=== PATIENT | female | born 1945 | race Caucasian/White ===

== ENCOUNTER 2017-10-02 14:25 | Inpatient (IN) | payer MEDICARE ==
[~2017-10-02] VITALS: Ht 162.6 cm; Wt 66.7 kg
[2017-10-02 16:22] VITALS: BP 146/83
[2017-10-02] MEDS ORDERED: ONDANSETRON 2MG/ML, 2ML IVPush PRN (16:30)
[2017-10-02] MEDS ORDERED: PLEASE ENTER ALLERGIES MC SCH (16:30)
[2017-10-02] MEDS ORDERED: hydrALAzine 20 MG/ML, 1ML IV PRN (17:00)
[2017-10-02] MEDS: SODIUM CHLORIDE 0.9% 1,000 ML IV SCH (18:08)
[2017-10-02 18:11] LABS: ALBUMIN 3.7 g/dL (3.4-5.0); ANION GAP 10 mmol/L (5-15); CALCIUM 9.2 mg/dL (8.5-10.1); CHLORIDE 93 mmol/L (98-107)
[2017-10-02 18:36] LABS: % IRON SATURATION 52 % (20-55); ALANINE AMINOTRANSFERASE 24 U/L (12-78); ALKALINE PHOSPHATASE 74 U/L (45-117); BILIRUBIN,TOTAL 0.6 mg/dL (0.2-1.0); CREATININE 0.62 mg/dL (0.55-1.02); IRON LEVEL 184 mcg/dL (50-170); TOTAL IRON BINDING CAPACITY 354 mcg/dL (250-450); TOTAL PROTEIN 7.6 g/dL (6.4-8.2)
[2017-10-02 18:37] LABS: FOLATE LEVEL > 20.0 ng/mL (3.1-17.5)
[2017-10-02 18:57] LABS: MD YES; MEAN CORPUSCULAR HEMOGLOBIN 32.8 pg (27.0-34.8); MEAN CORPUSCULAR HGB CONC 33.2 g/dL (32.4-35.8); RED BLOOD COUNT 2.33 x10^6/uL (3.82-5.3); RED CELL DISTRIBUTION WIDTH 23.3 % (9.6-15.2)
[2017-10-02 19:28] LABS: MEAN PLATELET VOLUME 8.7 fL (7.4-10.4); PLATELET COUNT 50 x10^3/uL (130-400)
[2017-10-02 19:37] LABS: BAND#(MANUAL) 0.12 x10^3/uL; BANDS%(MANUAL) 3 % (0-7); BASOS#(MANUAL) 0.04 x10^3/uL (0-0.1); BASOS% (MANUAL) 1 % (0-1); LYMPH#(MANUAL) 2.24 x10^3/uL (1-3.4); LYMPHS% (MANUAL) 56 % (22-44); METAMYELOCYTES# (MANUAL) 0.24 x10^3/uL (0-0); METAMYELOCYTES% (MANUAL) 6 % (0-1); MONOS#(MANUAL) 0.12 x10^3/uL (0.3-2.7); MONOS% (MANUAL) 3 % (2-9); MYELOCYTES# (MANUAL) 0.16 x10^3/uL (0-0); MYELOCYTES% (MANUAL) 4 % (0-0); REACTIVE LYMPHS # (MANUAL) 0.08 x10^3/uL (0-0); REACTIVE LYMPHS % (MANUAL) 2 % (0-0); SEG#(MANUAL) 0.48 x10^3/uL (1.8-6.8); SEGS% (MANUAL) 12 % (42-75)
[2017-10-02 19:39] LABS: NRBC % (MANUAL) 25 % (0-1); OTHER CELLS # (MANUAL) 0.52 x10^3/uL (0-0); OTHER CELLS % (MANUAL) 13 % (0-0)
[2017-10-02 19:43] LABS: OVALOCYTES 1+; SCHISTOCYTES 1+; TEAR DROPS 1+
[2017-10-02 19:44] LABS: POLYCHROMASIA 1+
[2017-10-02 19:45] LABS: ACANTHOCYTES 1+; ROULEAUX 1+
[2017-10-02 19:48] LABS: <PLATELET ESTIMATE> DECREASED; SPHEROCYTES 1+
[2017-10-02 19:51] LABS: HYPOGRAN PLTS 1+; PAPPENHEIMER BODIES 1+
[2017-10-02 19:52] VITALS: BP 119/77
[2017-10-03] VITALS (8 sets, daily range): BP systolic 121–138; BP diastolic 72–85
[2017-10-03] MEDS: SODIUM CHLORIDE 0.9% 1,000 ML IV SCH (03:31)
[2017-10-03 05:23] LABS: ALBUMIN 2.9 g/dL (3.4-5.0); ANION GAP 6 mmol/L (5-15); CALCIUM 7.9 mg/dL (8.5-10.1); CHLORIDE 101 mmol/L (98-107)
[2017-10-03 05:27] LABS: ALANINE AMINOTRANSFERASE 21 U/L (12-78); ALKALINE PHOSPHATASE 84 U/L (45-117); BILIRUBIN,TOTAL 0.4 mg/dL (0.2-1.0); CREATININE 0.56 mg/dL (0.55-1.02); TOTAL PROTEIN 6.1 g/dL (6.4-8.2)
[2017-10-03 05:50] LABS: MEAN CORPUSCULAR HEMOGLOBIN 33.3 pg (27.0-34.8); MEAN CORPUSCULAR HGB CONC 33.5 g/dL (32.4-35.8); MEAN CORPUSCULAR VOLUME 99.4 fL (80-100); RED BLOOD COUNT 1.92 x10^6/uL (3.82-5.3); RED CELL DISTRIBUTION WIDTH 22.8 % (9.6-15.2)
[2017-10-03 05:51] LABS: MEAN PLATELET VOLUME 9.2 fL (7.4-10.4); PLATELET COUNT 48 x10^3/uL (130-400)
[2017-10-03 06:09] LABS: MD YES
[2017-10-03 06:13] LABS: BAND#(MANUAL) 0.15 x10^3/uL; BANDS%(MANUAL) 3 % (0-7); EOS#(MANUAL) 0.05 x10^3/uL (0.0-0.4); EOS% (MANUAL) 1 % (1-7); LYMPH#(MANUAL) 3.38 x10^3/uL (1-3.4); LYMPHS% (MANUAL) 69 % (22-44); METAMYELOCYTES# (MANUAL) 0.15 x10^3/uL (0-0); METAMYELOCYTES% (MANUAL) 3 % (0-1); MONOS#(MANUAL) 0.05 x10^3/uL (0.3-2.7); MONOS% (MANUAL) 1 % (2-9); MYELOCYTES% (MANUAL) 4 % (0-0); SEG#(MANUAL) 0.54 x10^3/uL (1.8-6.8); SEGS% (MANUAL) 11 % (42-75)
[2017-10-03 06:14] LABS: NRBC % (MANUAL) 38 % (0-1); OTHER CELLS # (MANUAL) 0.39 x10^3/uL (0-0)
[2017-10-03 06:15] LABS: OTHER CELLS % (MANUAL) 8 % (0-0)
[2017-10-03 06:16] LABS: OVALOCYTES 1+
[2017-10-03 06:17] LABS: TEAR DROPS 1+
[2017-10-03 06:18] LABS: SCHISTOCYTES 1+; SPHEROCYTES 1+
[2017-10-03 06:19] LABS: <PLATELET ESTIMATE> DECREASED; HYPOGRAN PLTS 1+; PAPPENHEIMER BODIES 1+; POLYCHROMASIA 1+
[2017-10-03 07:16] LABS: ABSOLUTE RETICS # 0.1 x10^6/uL (0.5-2.5); RETICULOCYTE COUNT % 4.9 % (0.5-1.5)
[2017-10-03 07:21] LABS: RED BLOOD COUNT 2.04 x10^6/uL (3.82-5.3)
[2017-10-03] MEDS ORDERED: ENAL5TAB PO (08:50)
[2017-10-03] MEDS ORDERED: METO-264 PO (08:50)
[2017-10-03 10:27] LABS: SODIUM,URINE RANDOM 96 mmol/L
[2017-10-03] MEDS ORDERED: MIDAZOLAM 1 MG/ML, 5ML ONE (10:51)
[2017-10-03] MEDS ORDERED: FENTANYL PF 100 MCG/2ML ONE (10:51)
[2017-10-03] MEDS ORDERED: FLUMAZENIL 0.1 MG/1 ML, 5ML ONE (10:51)
[2017-10-03] MEDS ORDERED: NALOXONE 1 MG/ML, 2ML ONE (10:51)
[2017-10-03 10:55] LABS: OSMOLALITY,URINE 354 mOsm/kg (500-850)
[2017-10-03 13:50] LABS: MD YES; MEAN CORPUSCULAR HEMOGLOBIN 32.9 pg (27.0-34.8); MEAN CORPUSCULAR HGB CONC 33.7 g/dL (32.4-35.8); MEAN CORPUSCULAR VOLUME 97.4 fL (80-100); RED BLOOD COUNT 2.55 x10^6/uL (3.82-5.3); RED CELL DISTRIBUTION WIDTH 21.4 % (9.6-15.2)
[2017-10-03 13:54] LABS: MEAN PLATELET VOLUME 9.3 fL (7.4-10.4)
[2017-10-03 13:55] LABS: PLATELET COUNT 44 x10^3/uL (130-400)
[2017-10-03 14:09] LABS: BAND#(MANUAL) 0.12 x10^3/uL; BANDS%(MANUAL) 3 % (0-7); EOS#(MANUAL) 0.12 x10^3/uL (0.0-0.4); EOS% (MANUAL) 3 % (1-7); LYMPH#(MANUAL) 2.34 x10^3/uL (1-3.4); LYMPHS% (MANUAL) 60 % (22-44); METAMYELOCYTES# (MANUAL) 0.27 x10^3/uL (0-0); METAMYELOCYTES% (MANUAL) 7 % (0-1); MYELOCYTES# (MANUAL) 0.23 x10^3/uL (0-0); MYELOCYTES% (MANUAL) 6 % (0-0); SEG#(MANUAL) 0.39 x10^3/uL (1.8-6.8); SEGS% (MANUAL) 10 % (42-75)
[2017-10-03 14:12] LABS: NRBC % (MANUAL) 34 % (0-1); OTHER CELLS # (MANUAL) 0.43 x10^3/uL (0-0); OTHER CELLS % (MANUAL) 11 % (0-0)
[2017-10-03 14:13] LABS: OVALOCYTES 1+; POLYCHROMASIA 1+; SCHISTOCYTES 1+; SPHEROCYTES 1+; TEAR DROPS 1+
[2017-10-03 14:14] LABS: PAPPENHEIMER BODIES 1+
[2017-10-03 14:15] LABS: <PLATELET ESTIMATE> DECREASED; HYPOGRAN PLTS 1+
[2017-10-03] MEDS ORDERED: SODIUM CHLORIDE 0.9% 1,000 ML IV SCH (16:21)
[2017-10-03 18:17] LABS: OCCULT BLOOD NEGATIVE (NEGATIVE)
[2017-10-03] MEDS ORDERED: GUAIFENESIN 200 MG TABLET PO SCH (22:00)
[2017-10-03] MEDS ORDERED: MONTELUKAST 10 MG TABLET PO SCH (22:00)
[2017-10-03] MEDS ORDERED: LORATADINE 10 MG TABLET PO SCH (22:00)
[2017-10-03] MEDS: ACETAMINOPHEN 325 MG TABLET PO PRN (22:48)
[2017-10-04 04:00] VITALS: BP 118/66
[2017-10-04 04:55] LABS: ALBUMIN 3.3 g/dL (3.4-5.0); ANION GAP 6 mmol/L (5-15); CALCIUM 8.2 mg/dL (8.5-10.1); CHLORIDE 104 mmol/L (98-107)
[2017-10-04 04:59] LABS: ALANINE AMINOTRANSFERASE 21 U/L (12-78); ALKALINE PHOSPHATASE 73 U/L (45-117); BILIRUBIN,TOTAL 0.6 mg/dL (0.2-1.0); CREATININE 0.75 mg/dL (0.55-1.02); TOTAL PROTEIN 6.9 g/dL (6.4-8.2)
[2017-10-04 06:27] LABS: MD YES; MEAN CORPUSCULAR HGB CONC 33.6 g/dL (32.4-35.8); MEAN CORPUSCULAR VOLUME 98.3 fL (80-100); MEAN PLATELET VOLUME 9.6 fL (7.4-10.4); RED CELL DISTRIBUTION WIDTH 21.9 % (9.6-15.2)
[2017-10-04 06:29] LABS: PLATELET COUNT 49 x10^3/uL (130-400)
[2017-10-04 06:31] LABS: BAND#(MANUAL) 0.13 x10^3/uL; BANDS%(MANUAL) 2 % (0-7); LYMPH#(MANUAL) 4.86 x10^3/uL (1-3.4); LYMPHS% (MANUAL) 76 % (22-44); METAMYELOCYTES# (MANUAL) 0.38 x10^3/uL (0-0); METAMYELOCYTES% (MANUAL) 6 % (0-1); MONOS#(MANUAL) 0.13 x10^3/uL (0.3-2.7); MONOS% (MANUAL) 2 % (2-9); MYELOCYTES# (MANUAL) 0.51 x10^3/uL (0-0); MYELOCYTES% (MANUAL) 8 % (0-0); NRBC % (MANUAL) 26 % (0-1); SEG#(MANUAL) 0.38 x10^3/uL (1.8-6.8); SEGS% (MANUAL) 6 % (42-75)
[2017-10-04 06:32] LABS: <PLATELET ESTIMATE> DECREASED; OVALOCYTES 1+; POLYCHROMASIA 1+; SCHISTOCYTES 1+
[2017-10-04 07:41] LABS: HYPOGRAN PLTS 1+
[2017-10-04 08:33] VITALS: BP 133/78
[2017-10-04 15:19] VITALS: BP 150/96
[2017-10-04] MEDS: ACETAMINOPHEN 325 MG TABLET PO PRN ×2 (16:36→23:36)
[2017-10-04 20:00] VITALS: BP 152/96
[2017-10-04 23:42] VITALS: BP 150/92
[2017-10-04] MEDS ORDERED: ESTR1TAB5 PO (23:51)
[2017-10-04] MEDS ORDERED: ALEN70TA3 PO (23:51)
[2017-10-05 02:00] VITALS: BP 151/94
[2017-10-05 05:57] LABS: MD YES
[2017-10-05 06:01] LABS: MEAN CORPUSCULAR HEMOGLOBIN 32.2 pg (27.0-34.8); MEAN CORPUSCULAR HGB CONC 33.7 g/dL (32.4-35.8); MEAN CORPUSCULAR VOLUME 95.6 fL (80-100); MEAN PLATELET VOLUME 9.6 fL (7.4-10.4); RED BLOOD COUNT 2.57 x10^6/uL (3.82-5.3); RED CELL DISTRIBUTION WIDTH 21.4 % (9.6-15.2)
[2017-10-05 06:02] LABS: PLATELET COUNT 48 x10^3/uL (130-400)
[2017-10-05 06:10] LABS: BAND#(MANUAL) 0.25 x10^3/uL; BANDS%(MANUAL) 5 % (0-7); BASOS#(MANUAL) 0.05 x10^3/uL (0-0.1); BASOS% (MANUAL) 1 % (0-1); BLASTS # (MANUAL) 0.15 x10^3/uL (0-0); EOS% (MANUAL) 4 % (1-7); LYMPH#(MANUAL) 3.05 x10^3/uL (1-3.4); LYMPHS% (MANUAL) 61 % (22-44); METAMYELOCYTES% (MANUAL) 4 % (0-1); MONOS% (MANUAL) 4 % (2-9); MYELOCYTES% (MANUAL) 6 % (0-0); NRBC % (MANUAL) 19 % (0-1); SEGS% (MANUAL) 12 % (42-75)
[2017-10-05 06:15] LABS: BLASTS % (MANUAL) 3 % (0-0)
[2017-10-05 06:17] LABS: <PLATELET ESTIMATE> DECREASED; ANISOCYTOSIS 1+; HYPOGRAN PLTS 1+; OVALOCYTES 1+; POLYCHROMASIA 1+; SCHISTOCYTES 1+
[2017-10-05 08:49] VITALS: BP 164/91
[2017-10-05 13:51] VITALS: BP 163/93
[2017-10-05] MEDS ORDERED: METOPROLOL SUCCINATE 50 MG TAB.ER.24H ONE (16:49)
[2017-10-05 17:14] VITALS: BP 150/82
[2017-10-06] MEDS ORDERED: ENALAPRIL 5MG TABLET PO SCH (09:00)
[2017-10-06] MEDS ORDERED: METOPROLOL SUCCINATE 50 MG TAB.ER.24H PO SCH (09:00)
== END 2017-10-05 18:40 | disposition home or self-care (01) | DRG 812 ==
LOC: 3NW 16:14
PROVIDERS: ADMIT Internal Medicine Pulmonary Disease; ATTEND Internal Medicine Pulmonary Disease
PROC: 07DR3ZX Extraction of Iliac Bone Marrow, Percutaneous Approach, Diagnostic (ICD-10-PCS; principal; 2017-10-03)
PROC: 30233N1 Transfusion of Nonautologous Red Blood Cells into Peripheral Vein, Percutaneous Approach (ICD-10-PCS; 2017-10-03)
DX: D46.9 Myelodysplastic syndrome, unspecified (principal); E87.1 Hypo-osmolality and hyponatremia; B19.9 Unspecified viral hepatitis without hepatic coma; D69.59 Other secondary thrombocytopenia; I10 Essential (primary) hypertension; M81.0 Age-related osteoporosis without current pathological fracture
CPT/HCPCS: 36415; 38222; 77012; 80053; 82272; 82533; 82607; 82728; 82746; 83540; 83550; 83615; 83735; 83930; 83935; 84100; 84300; 84443; 85025; 85045; 85060; 85097; 86704; 86706; 86708; 86803; 86850; 86900; 86923; 87340; 87806; 88184; 88185; 88237; 88264; 88280; 88305; 88311; 88313; 88360; 88374; J2250; J3010; G0475; J2310; J7030; P9016

== ENCOUNTER 2017-10-10 10:58 | Day surgery (SDC) | payer MEDICARE ==
[~2017-10-10] VITALS: Ht 162.6 cm; Wt 58.3 kg
[~2017-10-10 10:58] MED LIST: ALEN70TA3 PO; ENAL5TAB PO; ESTR1TAB5 PO; METO-264 PO
[2017-10-10] MEDS ORDERED: PLEASE ENTER HEIGHT AND WEIGHT MC SCH (11:30)
[2017-10-10] MEDS ORDERED: CEFAZOLIN PMX 1GM/50ML 50 ML IV ONE (11:30)
[2017-10-10 11:50] VITALS: BP 166/96
[2017-10-10] MEDS ORDERED: SODIUM CHLORIDE 0.9% 1,000 ML IV SCH (11:51)
[2017-10-10 12:21] VITALS: BP 159/81
[2017-10-10 12:40] LABS: MD YES; MEAN CORPUSCULAR HEMOGLOBIN 33.2 pg (27.0-34.8); MEAN CORPUSCULAR HGB CONC 34.2 g/dL (32.4-35.8); MEAN CORPUSCULAR VOLUME 97.2 fL (80-100); RED BLOOD COUNT 2.59 x10^6/uL (3.82-5.3); RED CELL DISTRIBUTION WIDTH 20.9 % (9.6-15.2)
[2017-10-10 12:53] LABS: MEAN PLATELET VOLUME 9.7 fL (7.4-10.4)
[2017-10-10 12:56] LABS: ANISOCYTOSIS 1+; BAND#(MANUAL) 0.19 x10^3/uL; BANDS%(MANUAL) 4 % (0-7); BLASTS # (MANUAL) 0.38 x10^3/uL (0-0); EOS#(MANUAL) 0.09 x10^3/uL (0.0-0.4); EOS% (MANUAL) 2 % (1-7); LYMPH#(MANUAL) 1.97 x10^3/uL (1-3.4); LYMPHS% (MANUAL) 42 % (22-44); METAMYELOCYTES# (MANUAL) 0.28 x10^3/uL (0-0); METAMYELOCYTES% (MANUAL) 6 % (0-1); NRBC % (MANUAL) 18 % (0-1); SEG#(MANUAL) 1.79 x10^3/uL (1.8-6.8); SEGS% (MANUAL) 38 % (42-75)
[2017-10-10 12:57] LABS: <PLATELET ESTIMATE> DECREASED; HYPOGRAN PLTS 1+; OVALOCYTES 1+; SCHISTOCYTES 1+; TEAR DROPS 1+
[2017-10-10 13:03] LABS: PLATELET COUNT 47 x10^3/uL (130-400)
[2017-10-10] MEDS ORDERED: FENTANYL PF 100 MCG/2ML ONE (13:14)
[2017-10-10] MEDS ORDERED: MIDAZOLAM 1 MG/ML, 5ML ONE (13:14)
[2017-10-10 13:15] LABS: BLASTS % (MANUAL) 8 % (0-0)
== END 2017-10-10 16:05 | disposition home or self-care (01) ==
LOC: OUT 10:58
PROVIDERS: ATTEND Internal Medicine Hematology & Oncology
DX: Z45.2 Encounter for adjustment and management of vascular access device (principal); C94.6 Myelodysplastic disease, not elsewhere classified; D69.6 Thrombocytopenia, unspecified; Z88.5 Allergy status to narcotic agent; I10 Essential (primary) hypertension; Z87.39 Personal history of other diseases of the musculoskeletal system and connective tissue; Z98.890 Other specified postprocedural states
CPT/HCPCS: 36415; 36561; 76937; 77001; 85025; C1788; J0690; J1642; J2250; J3010; J7030

== ENCOUNTER 2017-11-02 06:49 | Inpatient (IN) | payer MEDICARE ==
[~2017-11-02] VITALS: Ht 170.2 cm; Wt 75.9 kg
[2017-11-02] VITALS (9 sets, daily range): BP systolic 84–110; BP diastolic 50–66
[2017-11-02] MEDS ORDERED: ACETAMINOPHEN 650 MG SUPP ONE (07:00)
[2017-11-02] MEDS ORDERED: chemo (07:04)
[2017-11-02] MEDS ORDERED: VANCOMYCIN PER PHARMACY MC ONE (07:30)
[2017-11-02] MEDS ORDERED: CEFEPIME 1 GM in DEXTROSE 5% 50 ML IVPB ONE (07:30)
[2017-11-02] MEDS ORDERED: VANCOMYCIN 1,200 MG in SODIUM CHLORIDE 0.9% 250 ML IV ONE (07:30)
[2017-11-02] MEDS ORDERED: PHARMACOKINETIC CONSULTATION MC ONE ×2 (07:30→14:00)
[2017-11-02] MEDS ORDERED: SODIUM CHLORIDE 0.9% 1,000ML IVBOLUS ONE (07:30)
[2017-11-02 07:44] LABS: PH, VENOUS 7.401 pH (7.320-7.420)
[2017-11-02 07:49] LABS: FIO2 ROOM AIR %
[2017-11-02 07:51] LABS: INTERNATIONAL NORMALIZED RATIO 1.22 (0.93-1.1); PROTHROMBIN TIME 12.5 Seconds (9.6-11.5)
[2017-11-02] MEDS: ACETAMINOPHEN 650 MG SUPP PR PRN ×2 (07:55→08:00)
[2017-11-02 07:57] LABS: ALBUMIN 2.3 g/dL (3.4-5.0); ANION GAP 11 mmol/L (5-15); CALCIUM 7.5 mg/dL (8.5-10.1); CHLORIDE 100 mmol/L (98-107)
[2017-11-02] MEDS ORDERED: ACETAMINOPHEN 325 MG SUPP ONE (08:01)
[2017-11-02 08:08] LABS: ALANINE AMINOTRANSFERASE 203 U/L (12-78); ALKALINE PHOSPHATASE 93 U/L (45-117); BILIRUBIN,TOTAL 1.1 mg/dL (0.2-1.0); CREATININE 1.46 mg/dL (0.55-1.02); FREE T4 (FREE THYROXINE) 1.41 ng/dL (0.76-1.46); THYROID STIMULATING HORMONE 0.568 mIU/L (0.358-3.740); TOTAL PROTEIN 6.2 g/dL (6.4-8.2)
[2017-11-02 08:18] LABS: MEAN CORPUSCULAR HEMOGLOBIN 31.9 pg (27.0-34.8); MEAN CORPUSCULAR HGB CONC 35.1 g/dL (32.4-35.8); MEAN CORPUSCULAR VOLUME 90.8 fL (80-100); MEAN PLATELET VOLUME 6.7 fL (7.4-10.4); RED BLOOD COUNT 2.35 x10^6/uL (3.82-5.3)
[2017-11-02 08:20] LABS: PLATELET COUNT 3 x10^3/uL (130-400)
[2017-11-02 08:22] LABS: MD YES
[2017-11-02 08:32] LABS: LYMPH#(MANUAL) 0.19 x10^3/uL (1-3.4); LYMPHS% (MANUAL) 96 % (22-44); MONOS#(MANUAL) 0.01 x10^3/uL (0.3-2.7); MONOS% (MANUAL) 4 % (2-9); NRBC % (MANUAL) 4 % (0-1)
[2017-11-02 08:33] LABS: <PLATELET ESTIMATE> DECREASED; <PLT MORPHOLOGY> QNS FOR PLT MORPH; ANISOCYTOSIS 1+
[2017-11-02 08:34] LABS: OVALOCYTES 1+
[2017-11-02] MEDS ORDERED: NITROGLYCERIN 0.4 MG BOTTLE (25 TABS) SL ONE (09:00)
[2017-11-02] MEDS ORDERED: VERAPAMIL 2.5 MG/ML, 2ML IVPush ONE (10:00)
[2017-11-02] MEDS ORDERED: VERAPAMIL 2.5 MG/ML, 2ML ONE (10:25)
[2017-11-02] MEDS ORDERED: ACETAMINOPHEN 325 MG TABLET PO PRN (12:30)
[2017-11-02] MEDS ORDERED: BISACODYL 10 MG SUPP PR PRN (12:30)
[2017-11-02] MEDS ORDERED: MEROPENEM 500 MG in SODIUM CHLORIDE 0.9% 100 ML IV SCH (12:30)
[2017-11-02] MEDS ORDERED: POLYETHYLENE GLYCOL 17 GM PACKET PO PRN (12:30)
[2017-11-02] MEDS ORDERED: MAGNESIUM SULFATE PMX 2GM/50ML 50 ML IV ONE (13:00)
[2017-11-02] MEDS ORDERED: NOREPINEPHRINE 4 MG in SODIUM CHLORIDE 0.9% 246 ML IV PRN (13:00)
[2017-11-02 13:23] LABS: MEAN CORPUSCULAR HEMOGLOBIN 31.1 pg (27.0-34.8); MEAN CORPUSCULAR HGB CONC 34.3 g/dL (32.4-35.8); MEAN CORPUSCULAR VOLUME 90.6 fL (80-100); MEAN PLATELET VOLUME 6.7 fL (7.4-10.4); RED BLOOD COUNT 2.82 x10^6/uL (3.82-5.3); RED CELL DISTRIBUTION WIDTH 15.3 % (9.6-15.2)
[2017-11-02] MEDS ORDERED: MICAFUNGIN 100 MG in SODIUM CHLORIDE 0.9% 100 ML IV SCH (13:30)
[2017-11-02 13:41] LABS: MD YES; PLATELET COUNT 2 x10^3/uL (130-400)
[2017-11-02 13:42] LABS: PLATELET (DIC) 2 x10^3/uL (130-400)
[2017-11-02 13:43] LABS: ANISOCYTOSIS 1+; LYMPH#(MANUAL) 0.18 x10^3/uL (1-3.4); LYMPHS% (MANUAL) 92 % (22-44); MONOS#(MANUAL) 0.01 x10^3/uL (0.3-2.7); MONOS% (MANUAL) 4 % (2-9); NRBC % (MANUAL) 12 % (0-1); OVALOCYTES 1+; SEG#(MANUAL) 0.01 x10^3/uL (1.8-6.8); SEGS% (MANUAL) 4 % (42-75)
[2017-11-02 13:44] LABS: <PLATELET ESTIMATE> DECREASED; <PLT MORPHOLOGY> QNS FOR PLT MORPH
[2017-11-02 13:48] LABS: D-DIMER (DIC) > 35.20 ug/mlFEU (0.00-0.52); FIBRINOGEN 556 mg/dL (200-340); PROTIME 13.4 Seconds (9.6-11.5); PTT 37 Seconds (25-31)
[2017-11-02] MEDS ORDERED: VANCOMYCIN PER PHARMACY MC PRN (14:00)
[2017-11-02] MEDS ORDERED: PHARMACOKINETIC MONITORING MC PRN (14:00)
[2017-11-02] MEDS: HYDROCORTISONE 100 MG INJ. IV SCH ×2 (15:00→23:07)
[2017-11-02] MEDS: ACYCLOVIR 400 MG in SODIUM CHLORIDE 0.9% 100 ML IV SCH (16:03)
[2017-11-02] MEDS: SODIUM CHLORIDE 0.9% 1,000 ML IV SCH ×2 (16:03→23:00)
[2017-11-02] MEDS ORDERED: ACETAMINOPHEN 650 MG SUPP PR PRN (16:30)
[2017-11-02] MEDS ORDERED: DAPTOMYCIN 350 MG in SODIUM CHLORIDE 0.9% 100 ML IVPB SCH (17:30)
[2017-11-02] MEDS: MEROPENEM 1 GM in SODIUM CHLORIDE 0.9% 100 ML IV SCH (18:50)
[2017-11-02] MEDS: FENTANYL PF 100 MCG/2ML IVPush PRN (19:52)
[2017-11-02 20:44] LABS: MICROSCOPIC INDICATED
[2017-11-02 20:52] LABS: CULTURE INDICATED? YES
[2017-11-02] MEDS ORDERED: DOCUSATE 100 MG CAPSULE PO PRN (21:00)
[2017-11-02 21:39] LABS: MEAN CORPUSCULAR HEMOGLOBIN 30.8 pg (27.0-34.8); MEAN CORPUSCULAR HGB CONC 34.1 g/dL (32.4-35.8); MEAN CORPUSCULAR VOLUME 90.4 fL (80-100); RED BLOOD COUNT 3.08 x10^6/uL (3.82-5.3); RED CELL DISTRIBUTION WIDTH 15.9 % (9.6-15.2)
[2017-11-02 21:44] LABS: MEAN PLATELET VOLUME 8.4 fL (7.4-10.4)
[2017-11-02 21:49] LABS: MD YES; PLATELET COUNT 48 x10^3/uL (130-400)
[2017-11-02 22:13] LABS: EOS#(MANUAL) 0.01 x10^3/uL (0.0-0.4); EOS% (MANUAL) 4 % (1-7); LYMPH#(MANUAL) 0.14 x10^3/uL (1-3.4); LYMPHS% (MANUAL) 72 % (22-44); MONOS#(MANUAL) 0.01 x10^3/uL (0.3-2.7); MONOS% (MANUAL) 4 % (2-9); NRBC % (MANUAL) 8 % (0-1); SEG#(MANUAL) 0.04 x10^3/uL (1.8-6.8); SEGS% (MANUAL) 20 % (42-75)
[2017-11-02 22:14] LABS: <PLATELET ESTIMATE> DECREASED; ANISOCYTOSIS 1+; OVALOCYTES 1+
[2017-11-02 22:15] LABS: <PLT MORPHOLOGY> NORMAL PLT MORPH
[2017-11-03] MEDS: ACETAMINOPHEN 650 MG SUPP PR PRN ×2 (01:40→12:27)
[2017-11-03] MEDS: FENTANYL PF 100 MCG/2ML IVPush PRN (01:48)
[2017-11-03 03:45] VITALS: BP 112/62
[2017-11-03] MEDS: ACYCLOVIR 400 MG in SODIUM CHLORIDE 0.9% 100 ML IV SCH ×2 (04:21→15:08)
[2017-11-03 05:14] LABS: ALANINE AMINOTRANSFERASE 223 U/L (12-78); ALBUMIN 1.6 g/dL (3.4-5.0); ANION GAP 11 mmol/L (5-15); CALCIUM 6.7 mg/dL (8.5-10.1); CHLORIDE 111 mmol/L (98-107); CREATININE 2.44 mg/dL (0.55-1.02)
[2017-11-03 05:17] LABS: ALKALINE PHOSPHATASE 69 U/L (45-117); BILIRUBIN,TOTAL 1.4 mg/dL (0.2-1.0); TOTAL PROTEIN 5.5 g/dL (6.4-8.2)
[2017-11-03 06:09] LABS: MEAN CORPUSCULAR HEMOGLOBIN 31.2 pg (27.0-34.8); MEAN CORPUSCULAR HGB CONC 34.3 g/dL (32.4-35.8); MEAN CORPUSCULAR VOLUME 90.8 fL (80-100); MEAN PLATELET VOLUME 9.7 fL (7.4-10.4); RED BLOOD COUNT 3.67 x10^6/uL (3.82-5.3); RED CELL DISTRIBUTION WIDTH 15.6 % (9.6-15.2)
[2017-11-03 06:10] LABS: MD YES
[2017-11-03] MEDS: HYDROCORTISONE 100 MG INJ. IV SCH (06:16)
[2017-11-03 06:19] LABS: PLATELET COUNT 13 x10^3/uL (130-400)
[2017-11-03] MEDS: MEROPENEM 1 GM in SODIUM CHLORIDE 0.9% 100 ML IV SCH ×2 (06:25→19:52)
[2017-11-03] MEDS: SODIUM CHLORIDE 0.9% 1,000 ML IV SCH ×2 (06:26→22:00)
[2017-11-03 06:34] LABS: <PLATELET ESTIMATE> DECREASED; <PLT MORPHOLOGY> NORMAL PLT MORPH; ANISOCYTOSIS 1+; LYMPH#(MANUAL) 0.18 x10^3/uL (1-3.4); LYMPHS% (MANUAL) 92 % (22-44); NRBC % (MANUAL) 4 % (0-1); OVALOCYTES 1+; SEG#(MANUAL) 0.02 x10^3/uL (1.8-6.8); SEGS% (MANUAL) 8 % (42-75)
[2017-11-03 07:49] VITALS: BP 106/74
[2017-11-03 08:06] VITALS: BP 105/65
[2017-11-03 09:00] VITALS: BP 112/73
[2017-11-03] MEDS ORDERED: LACTATED RINGERS 500 ML IVBOLUS ONE ×4 (09:00→16:00)
[2017-11-03] MEDS ORDERED: MAGNESIUM SULFATE PMX 2GM/50ML 50 ML IV ONE (09:00)
[2017-11-03] MEDS: PANTOPRAZOLE 40 MG IV IVPush SCH (09:02)
[2017-11-03] MEDS ORDERED: LACTATED RINGERS 1,000 ML IV SCH (12:00)
[2017-11-03] MEDS ORDERED: ACETAMINOPHEN 650 MG SUPP PR PRN (12:30)
[2017-11-03 13:49] LABS: MEAN CORPUSCULAR HEMOGLOBIN 30.7 pg (27.0-34.8); MEAN CORPUSCULAR VOLUME 90.3 fL (80-100); MEAN PLATELET VOLUME 7.9 fL (7.4-10.4); RED BLOOD COUNT 3.19 x10^6/uL (3.82-5.3); RED CELL DISTRIBUTION WIDTH 15.6 % (9.6-15.2)
[2017-11-03 13:52] LABS: PLATELET COUNT 9 x10^3/uL (130-400)
[2017-11-03 14:04] LABS: MD YES
[2017-11-03 14:05] LABS: LYMPH#(MANUAL) 0.18 x10^3/uL (1-3.4); LYMPHS% (MANUAL) 90 % (22-44); SEG#(MANUAL) 0.02 x10^3/uL (1.8-6.8); SEGS% (MANUAL) 10 % (42-75)
[2017-11-03 14:06] LABS: NRBC % (MANUAL) 1 % (0-1)
[2017-11-03 14:10] LABS: ANISOCYTOSIS 1+
[2017-11-03 14:13] LABS: <PLATELET ESTIMATE> DECREASED; <PLT MORPHOLOGY> NORMAL PLT MORPH; OVALOCYTES 1+
[2017-11-03] MEDS ORDERED: SODIUM PHOSPHATE 20 MMOL in SODIUM CHLORIDE 0.9% 500 ML IV ONE (18:00)
[2017-11-03 20:43] LABS: MEAN CORPUSCULAR HEMOGLOBIN 31.2 pg (27.0-34.8); MEAN CORPUSCULAR HGB CONC 34.3 g/dL (32.4-35.8); MEAN CORPUSCULAR VOLUME 91.2 fL (80-100); MEAN PLATELET VOLUME 8.9 fL (7.4-10.4); RED CELL DISTRIBUTION WIDTH 16.1 % (9.6-15.2)
[2017-11-03 20:45] LABS: MD YES; PLATELET COUNT 13 x10^3/uL (130-400)
[2017-11-03 20:56] LABS: <PLATELET ESTIMATE> DECREASED; <PLT MORPHOLOGY> NORMAL PLT MORPH; ANISOCYTOSIS 1+; LYMPH#(MANUAL) 0.18 x10^3/uL (1-3.4); LYMPHS% (MANUAL) 92 % (22-44); NRBC % (MANUAL) 4 % (0-1); OVALOCYTES 1+; SEG#(MANUAL) 0.02 x10^3/uL (1.8-6.8); SEGS% (MANUAL) 8 % (42-75)
[2017-11-03 20:57] LABS: ECHINOCYTES 1+
[2017-11-03] MEDS ORDERED: VANCOMYCIN 1,200 MG in SODIUM CHLORIDE 0.9% 250 ML IV SCH (21:00)
[2017-11-03 21:07] LABS: INTERNATIONAL NORMALIZED RATIO 1.18 (0.93-1.1); PROTHROMBIN TIME 12.1 Seconds (9.6-11.5)
[2017-11-03 21:40] VITALS: BP 125/73
[2017-11-03 21:56] VITALS: BP 132/64
[2017-11-03] MEDS ORDERED: SODIUM CHLORIDE 0.9%, 500ML IVBOLUS ONE (23:30)
[2017-11-04] VITALS (23 sets, daily range): BP systolic 115–142; BP diastolic 57–91
[2017-11-04] MEDS: ACETAMINOPHEN 650 MG SUPP PR PRN ×2 (01:58→14:22)
[2017-11-04] MEDS: ACYCLOVIR 400 MG in SODIUM CHLORIDE 0.9% 100 ML IV SCH ×2 (04:09→16:55)
[2017-11-04 04:29] LABS: INTERNATIONAL NORMALIZED RATIO 1.09 (0.93-1.1); PROTHROMBIN TIME 11.3 Seconds (9.6-11.5)
[2017-11-04 04:42] LABS: CHLORIDE 114 mmol/L (98-107)
[2017-11-04 04:48] LABS: ANION GAP 13 mmol/L (5-15); CALCIUM 6.2 mg/dL (8.5-10.1); CREATININE 2.68 mg/dL (0.55-1.02)
[2017-11-04 04:49] LABS: ALANINE AMINOTRANSFERASE 110 U/L (12-78); ALBUMIN 1.5 g/dL (3.4-5.0); ALKALINE PHOSPHATASE 67 U/L (45-117); BILIRUBIN,TOTAL 1.4 mg/dL (0.2-1.0); TOTAL PROTEIN 5.1 g/dL (6.4-8.2)
[2017-11-04 04:58] LABS: MEAN CORPUSCULAR HGB CONC 34.1 g/dL (32.4-35.8); MEAN CORPUSCULAR VOLUME 90.8 fL (80-100); MEAN PLATELET VOLUME 6.7 fL (7.4-10.4); RED BLOOD COUNT 2.62 x10^6/uL (3.82-5.3); RED CELL DISTRIBUTION WIDTH 16.2 % (9.6-15.2)
[2017-11-04 05:00] LABS: MD YES; PLATELET COUNT 5 x10^3/uL (130-400)
[2017-11-04 05:08] LABS: NRBC % (MANUAL) 4 % (0-1)
[2017-11-04 05:09] LABS: <PLATELET ESTIMATE> DECREASED; <PLT MORPHOLOGY> QNS FOR PLT MORPH; ANISOCYTOSIS 1+; ECHINOCYTES 1+; LYMPH#(MANUAL) 0.18 x10^3/uL (1-3.4); LYMPHS% (MANUAL) 88 % (22-44); OVALOCYTES 1+; SEG#(MANUAL) 0.02 x10^3/uL (1.8-6.8); SEGS% (MANUAL) 12 % (42-75)
[2017-11-04] MEDS: SODIUM CHLORIDE 0.9% 1,000 ML IV SCH ×2 (06:34→14:00)
[2017-11-04] MEDS: PANTOPRAZOLE 40 MG IV IVPush SCH (09:18)
[2017-11-04] MEDS: MEROPENEM 1 GM in SODIUM CHLORIDE 0.9% 100 ML IV SCH (09:18)
[2017-11-04] MEDS: FENTANYL PF 100 MCG/2ML IVPush PRN ×6 (10:27→22:20)
[2017-11-04] MEDS ORDERED: CEFAZOLIN PMX 2GM/50ML 50 ML IVPB SCH (11:30)
[2017-11-04] MEDS ORDERED: RIFAMPIN 600 MG IVPB SCH (11:30)
[2017-11-04] MEDS ORDERED: IMMUNE GLOB (GAMUNEX) 10GM/100ML IV ONE (11:30)
[2017-11-04 12:20] LABS: MEAN CORPUSCULAR HEMOGLOBIN 31.3 pg (27.0-34.8); MEAN CORPUSCULAR HGB CONC 34.7 g/dL (32.4-35.8); MEAN CORPUSCULAR VOLUME 90.3 fL (80-100); MEAN PLATELET VOLUME 7.9 fL (7.4-10.4); RED CELL DISTRIBUTION WIDTH 16.5 % (9.6-15.2)
[2017-11-04 12:22] LABS: PLATELET COUNT 33 x10^3/uL (130-400)
[2017-11-04 12:23] LABS: MD YES
[2017-11-04 12:31] LABS: ANISOCYTOSIS 1+; LYMPHS% (MANUAL) 100 % (22-44)
[2017-11-04 12:33] LABS: <PLATELET ESTIMATE> DECREASED; <PLT MORPHOLOGY> NORMAL PLT MORPH; ECHINOCYTES 1+; OVALOCYTES 1+; SCHISTOCYTES 1+
[2017-11-04] MEDS: SODIUM BICARBONATE IV SCH (12:36)
[2017-11-04] MEDS: POTASSIUM CHLORIDE IV SCH (12:36)
[2017-11-04] MEDS: DEXTROSE 5% IV SCH (12:36)
[2017-11-04] MEDS: RIFAMPIN 600 MG in SODIUM CHLORIDE 0.9% 100 ML IV SCH (13:06)
[2017-11-04 18:04] LABS: ANION GAP 11 mmol/L (5-15); CALCIUM 6.2 mg/dL (8.5-10.1); CHLORIDE 115 mmol/L (98-107); CREATININE 2.55 mg/dL (0.55-1.02)
[2017-11-04] MEDS ORDERED: DAPTOMYCIN 350 MG in SODIUM CHLORIDE 0.9% 100 ML IVPB SCH (18:30)
[2017-11-04] MEDS ORDERED: POTASSIUM CHLORIDE 40 MEQ in SODIUM CHLORIDE 0.9% 100 ML IV ONE ×2 (18:30→23:00)
[2017-11-04 18:37] LABS: MD YES; MEAN CORPUSCULAR HEMOGLOBIN 31.2 pg (27.0-34.8); MEAN CORPUSCULAR VOLUME 89.4 fL (80-100); MEAN PLATELET VOLUME 9.5 fL (7.4-10.4); RED CELL DISTRIBUTION WIDTH 15.4 % (9.6-15.2)
[2017-11-04 18:39] LABS: PLATELET COUNT 6 x10^3/uL (130-400)
[2017-11-04 18:41] LABS: ANISOCYTOSIS 1+; ECHINOCYTES 1+; OVALOCYTES 1+; SCHISTOCYTES 1+
[2017-11-04 18:42] LABS: ACANTHOCYTES 1+
[2017-11-04 18:43] LABS: <PLATELET ESTIMATE> DECREASED
[2017-11-04 18:58] LABS: LYMPH#(MANUAL) 0.18 x10^3/uL (1-3.4); LYMPHS% (MANUAL) 92 % (22-44); MONOS% (MANUAL) 2 % (2-9); NRBC % (MANUAL) 13 % (0-1); REACTIVE LYMPHS # (MANUAL) 0.01 x10^3/uL (0-0); REACTIVE LYMPHS % (MANUAL) 5 % (0-0); SEGS% (MANUAL) 1 % (42-75)
[2017-11-04 19:01] LABS: <PLT MORPHOLOGY> QNS FOR PLT MORPH
[2017-11-05] VITALS (12 sets, daily range): BP systolic 110–142; BP diastolic 74–93
[2017-11-05] MEDS: FENTANYL PF 100 MCG/2ML IVPush PRN ×10 (00:07→18:41)
[2017-11-05] MEDS: ACYCLOVIR 400 MG in SODIUM CHLORIDE 0.9% 100 ML IV SCH ×2 (04:19→17:04)
[2017-11-05] MEDS: POTASSIUM CHLORIDE IV SCH ×2 (04:19→14:57)
[2017-11-05] MEDS: SODIUM BICARBONATE IV SCH ×2 (04:19→14:57)
[2017-11-05] MEDS: DEXTROSE 5% IV SCH ×2 (04:19→14:57)
[2017-11-05 04:28] LABS: ALANINE AMINOTRANSFERASE 61 U/L (12-78); ALBUMIN 1.6 g/dL (3.4-5.0); ANION GAP 10 mmol/L (5-15); CALCIUM 6.1 mg/dL (8.5-10.1); CHLORIDE 115 mmol/L (98-107); CREATININE 2.42 mg/dL (0.55-1.02); MEAN CORPUSCULAR HEMOGLOBIN 30.9 pg (27.0-34.8); MEAN CORPUSCULAR HGB CONC 34.8 g/dL (32.4-35.8); MEAN CORPUSCULAR VOLUME 88.7 fL (80-100); MEAN PLATELET VOLUME 9.1 fL (7.4-10.4); PROTHROMBIN TIME 10.4 Seconds (9.6-11.5); RED BLOOD COUNT 2.96 x10^6/uL (3.82-5.3); RED CELL DISTRIBUTION WIDTH 15.2 % (9.6-15.2)
[2017-11-05 04:31] LABS: ALKALINE PHOSPHATASE 78 U/L (45-117); BILIRUBIN,TOTAL 3.1 mg/dL (0.2-1.0); TOTAL PROTEIN 5.6 g/dL (6.4-8.2)
[2017-11-05 04:32] LABS: PLATELET COUNT 7 x10^3/uL (130-400)
[2017-11-05 05:40] LABS: MD YES
[2017-11-05 05:50] LABS: LYMPH#(MANUAL) 0.29 x10^3/uL (1-3.4); LYMPHS% (MANUAL) 96 % (22-44); NRBC % (MANUAL) 16 % (0-1); REACTIVE LYMPHS # (MANUAL) 0.01 x10^3/uL (0-0); REACTIVE LYMPHS % (MANUAL) 4 % (0-0)
[2017-11-05 05:51] LABS: ANISOCYTOSIS 1+
[2017-11-05 05:52] LABS: ECHINOCYTES 1+; SCHISTOCYTES 1+
[2017-11-05 05:53] LABS: <PLATELET ESTIMATE> DECREASED; <PLT MORPHOLOGY> QNS FOR PLT MORPH; OVALOCYTES 1+
[2017-11-05] MEDS: PANTOPRAZOLE 40 MG IV IVPush SCH (07:52)
[2017-11-05] MEDS ORDERED: IMMUNE GLOB (GAMUNEX) 10GM/100ML IV ONE (10:00)
[2017-11-05] MEDS ORDERED: FUROSEMIDE 40 MG/4 ML IV ONE (10:30)
[2017-11-05] MEDS ORDERED: MEROPENEM 1 GM in SODIUM CHLORIDE 0.9% 100 ML IV SCH (11:30)
[2017-11-05] MEDS: RIFAMPIN 600 MG in SODIUM CHLORIDE 0.9% 100 ML IV SCH (13:11)
[2017-11-05 15:15] LABS: HEMOGRAM NOTE RECHECKED; MEAN CORPUSCULAR HEMOGLOBIN 30.4 pg (27.0-34.8); MEAN CORPUSCULAR HGB CONC 34.1 g/dL (32.4-35.8); MEAN CORPUSCULAR VOLUME 89.4 fL (80-100); MEAN PLATELET VOLUME 8.6 fL (7.4-10.4); PLATELET COUNT 7 x10^3/uL (130-400); RED BLOOD COUNT 2.98 x10^6/uL (3.82-5.3)
[2017-11-05 15:22] LABS: MD YES
[2017-11-05 15:29] LABS: LYMPH#(MANUAL) 0.28 x10^3/uL (1-3.4); LYMPHS% (MANUAL) 92 % (22-44); SEG#(MANUAL) 0.02 x10^3/uL (1.8-6.8); SEGS% (MANUAL) 8 % (42-75)
[2017-11-05 15:30] LABS: ANISOCYTOSIS 1+
[2017-11-05 15:31] LABS: <PLATELET ESTIMATE> DECREASED
[2017-11-05 15:32] LABS: <PLT MORPHOLOGY> QNS FOR PLT MORPH
[2017-11-05] MEDS ORDERED: SODIUM CHLORIDE FLUSH 10ML SYR IVF PRN (19:00)
[2017-11-05] MEDS ORDERED: PROCHLORPERAZINE 5 MG/ML, 2ML IV PRN (19:30)
[2017-11-05] MEDS ORDERED: LORazepam INTENSOL 2 MG/ML BC PRN ×4 (19:30)
[2017-11-05] MEDS ORDERED: LORazepam 2 MG/ML, 1ML IV PRN ×2 (19:30)
[2017-11-05] MEDS ORDERED: morphine SULFATE 10 MG/ML, 1ML IVPush PRN ×3 (19:30)
[2017-11-05] MEDS ORDERED: ATROPINE OPHTH SOLN 1%, 5ML BC PRN (19:30)
[2017-11-05] MEDS ORDERED: morphine SULFATE ORAL.CONC 20 MG/ML PO PRN (19:30)
[2017-11-05] MEDS ORDERED: PROCHLORPERAZINE 10MG TABLET PO PRN (19:30)
[2017-11-05] MEDS ORDERED: METOCLOPRAMIDE 5 MG/ML, 2ML IV PRN (19:30)
[2017-11-05] MEDS ORDERED: morphine SULFATE ORAL.CONC 20 MG/ML BC PRN ×2 (19:30)
[2017-11-05] MEDS ORDERED: METOCLOPRAMIDE 10MG TABLET PO PRN (19:30)
[2017-11-05] MEDS ORDERED: PROCHLORPERAZINE 25 MG SUPP PR PRN (19:30)
[2017-11-05] MEDS ORDERED: ONDANSETRON 2MG/ML, 2ML IV PRN (19:30)
[2017-11-05] MEDS ORDERED: HALOPERIDOL 0.5 MG TABLET PO PRN (19:30)
== END 2017-11-06 02:00 | disposition expired | DRG 871 ==
LOC: ED 09:08 → EDIP 09:11 → CCU 10:55
PROVIDERS: ADMIT Hospitalist; ATTEND Hospitalist
PROC: 30233R1 Transfusion of Nonautologous Platelets into Peripheral Vein, Percutaneous Approach (ICD-10-PCS; principal; 2017-11-02)
PROC: 30233N1 Transfusion of Nonautologous Red Blood Cells into Peripheral Vein, Percutaneous Approach (ICD-10-PCS; 2017-11-02)
DX: A41.01 Sepsis due to Methicillin susceptible Staphylococcus aureus (principal); R65.21 Severe sepsis with septic shock; J96.01 Acute respiratory failure with hypoxia; N17.0 Acute kidney failure with tubular necrosis; G93.41 Metabolic encephalopathy; E43 Unspecified severe protein-calorie malnutrition; J81.1 Chronic pulmonary edema; B00.9 Herpesviral infection, unspecified; E83.42 Hypomagnesemia; E87.6 Hypokalemia; E87.70 Fluid overload, unspecified; I10 Essential (primary) hypertension; K72.90 Hepatic failure, unspecified without coma; M79.81 Nontraumatic hematoma of soft tissue; M81.0 Age-related osteoporosis without current pathological fracture; R50.81 Fever presenting with conditions classified elsewhere; Z68.26 Body mass index [BMI] 26.0-26.9, adult; D63.8 Anemia in other chronic diseases classified elsewhere; D46.4 Refractory anemia, unspecified
CPT/HCPCS: 36415; 70450; 71045; 80048; 80053; 81001; 82533; 82803; 83010; 83605; 83615; 83735; 84100; 84145; 84439; 84443; 85025; 85049; 85379; 85384; 85610; 85730; 86850; 86900; 86923; 87040; 87077; 87081; 87086; 87147; 87186; 93005; 93306; 93970; J0133; J0690; J0692; J0878; J1561; J1940; J2185; J2248; J2270; J3010; J3370; J3480; J7070; J7120; C9113; J2060; J3475; J7030; J7040; J7050; P9037; P9040